=== PATIENT | male | born 1995 | race African-American/Black ===

== ENCOUNTER 2024-02-24 14:38 | Emergency (ER) | payer OTHER ==
--- NOTE | 2024-02-24 15:29 | ED Physician Documentation ---
History of Present Illness - Stated complaint Stated Complaint: LT SIDE JAW PX - Chief complaint Chief Complaint: Heent - Additonal information Additional information: 28-year-old male presents emergency department for left jaw pain. Patient has multiple broken teeth he said that he was able to get in urgently with his dentist yesterday but he was unable to leave work to do so. He is now has increased left facial swelling and pain and jaw trismus. No fevers or chills PD PAST MEDICAL HISTORY - Past Medical History Musculoskeletal: None - Past Surgical History Past Surgical History: No - Present Medications Home Medications: Ambulatory Orders Medication Instructions Recorded Confirmed Amox/Clav 875/125 [Augmentin 1 tablet PO Q12H 7 Days #14 tablet 02/24/24 875/125 Tab] - Allergies Allergies/Adverse Reactions: Allergies Allergy/AdvReac Type Severity Reaction Status Date / Time No Known Drug Allergies Allergy Verified 02/24/24 14:47 - Social History Does the pt smoke?: No Smoking Status: Never smoker Does the pt drink ETOH?: No Does the pt have substance abuse?: No - Immunizations Immunizations are current?: Yes - POLST Patient has POLST: No PD ED PE NORMAL - Vitals Vital signs reviewed: Yes - General General: Alert and oriented X 3, No acute distress, Well developed/nourished - HEENT HEENT: Other (Left facial swelling, multiple broken teeth, fluctuation in left cheek about 2-3 cm in diameter, Mild jaw trismusNo mastoid tenderness) - Cardiac Cardiac: RRR - Respiratory Respiratory: No respiratory distress, Clear bilaterally - Derm Derm: Normal color, Warm and dry, No rash Results - Vitals Vitals: Vital Signs - 24 hr 02/24/24 02/24/24 14:43 16:52 Temperature 36.5 C Heart Rate 89 77 Respiratory 16 18 Rate Blood Pressure 145/96 H 144/80 H O2 Saturation 100 99 Oxygen O2 Source Room air PD Medical Decision Making - ED course ED course: Patient presents for dental pain due to suspected Dental abscess due to multiple broken teeth. Patient not immunosuppressed, afebrile and well appearing with patent airway, have low suspicion for deep space infection or any concern for airway compromise. Based on history, physical, and work up. No evidence of bleeding socket. No evidence of RPA, TRANSISTOR TESTER, Ludwigs angina. Offered patient dental nerve block for pain which patient accepted. Attempted to do a very small incision to the patient's left buccal unable to get any purulence out Instructed patient to continue to treat pain with ibuprofen/acetaminophen until they see a dentist. Started patient on Augmentin And prescription of Augmentin sent to patient's preferred pharmacy on file. Patient discharged home and will follow up with dentist He already has an appointment for mid February. Return precautions given all questions answered safe for discharge. Departure - Departure Disposition: Home, Self Care Clinical Impression: Dental abscess Instructions: ED Abscess Dental Prescriptions: Amox/Clav 875/125 [Augmentin 875/125 Tab] 1 tablet PO Q12H 7 Days #14 tablet Comments: Thank you for trusting us with your care. We attempted to do an incision of where the abscess is on the left cheek and we are unable to drain any purulent drainage. Do some warm compresses to the left cheek with some massaging as there is an incision that could still potentially drain from. We are starting you on an antibiotic called Augmentin you will take this twice a day for the next 7 days. Please follow-up with your dentist and get in with them soon as possible as you do have multiple teeth that need to be extracted otherwise you will continue to have these dental abscesses. Please come back to the emergency department if your facial swelling gets any worse, increased shortness of breath, fevers or chills or any other worsening concerning symptoms. Forms: PCP List Discharge Date/Time: 02/24/24 16:52
[2024-02-24] MEDS: BUPIVACAINE 0.5% PF 10 ML VIAL SUBQ STA (15:48)
[2024-02-24] MEDS: AMOX/CLAV 875 MG/125 MG TABLET PO STA (16:48)
[2024-02-24 16:58] VITALS: BP 144/80; O2SAT 99
== END 2024-02-24 16:52 | disposition home or self-care (01) ==
LOC: ED 14:38
DX: K04.7 Periapical abscess without sinus (principal)
CPT/HCPCS: 41800; 64450; 99283; A9270